=== PATIENT | female | born 1965 | race Caucasian/White ===

== ENCOUNTER 2016-10-18 08:02 | Emergency (ER) | payer OTHER ==
--- NOTE | 2016-10-18 10:14 | UC ---
Throat Pain/Nasal Kunal HPI - HPI Summary HPI Summary: complaint of being diagnosed with influenza last week- [facility] started taking tamiflu without any relief taking acetaminophen for headache, fever and joint pain with minimal relief- last dose 1:30 this morning complaint of headache started after tamiflu right eye is swollen and feels puffy and itchy- purulent drainage - started 2 days ago denies vision changes, photophobia constant headache, muscle and joint pain, headache for 5 days headache is in entire head and her neck feels stiff on the left side intermittent cough with purulent sputum fever intermittent for the last week poor appetite but drinking fluids denies N/V/D - History of Current Complaint Chief Complaint: UCGeneralIllness Stated Complaint: FLU SYMPTOMS Time Seen by Provider: 10/18/16 10:07 Hx Obtained From: Patient - Allergies/Home Medications Allergies/Adverse Reactions: Allergies Allergy/AdvReac Type Severity Reaction Status Date / Time No Known Allergies Allergy Verified 10/18/16 08:41 Home Medications: Home Medications Acetaminophen [Acetaminophen Extra Stren] 2 tab PO PRN 10/18/16 [History] Oseltamivir CAP* [Tamiflu CAP*] 1 cap PO BID 10/18/16 [History Confirmed ] PMH/Surg Hx/FS Hx/Imm Hx Previously Healthy: No - influenza - Surgical History Surgical History: Yes Surgery Procedure, Year, and Place: TUBAL LIGATION, 1979, [facility] - Family History Known Family History: Negative: Cardiac Disease, Diabetes - Social History Occupation: Employed Full-time Lives: With Family Alcohol Use: Occasionally Alcohol Amount: RARE GLASS OF WINE Substance Use Type: None Smoking Status (MU): Never Smoked Tobacco Have You Smoked in the Last Year: No Review of Systems Constitutional: Fever Skin: Negative Eyes: Drainage, Eye Redness ENT: Nasal Discharge Respiratory: Cough Cardiovascular: Negative Gastrointestinal: Negative Genitourinary: Negative Motor: Negative Neurovascular: Negative Musculoskeletal: Negative Neurological: Headache Psychological: Negative All Other Systems Reviewed And Are Negative: Yes Physical Exam Triage Information Reviewed: Yes Appearance: No Pain Distress, Well-Nourished, Ill-Appearing Vital Signs: Initial Vital Signs Temp 99.0 F 10/18/16 08:42 Pulse 85 10/18/16 08:42 Resp 18 10/18/16 08:42 BP 154/81 10/18/16 08:42 Pulse Ox 100 10/18/16 08:42 Vital Signs Reviewed: Yes Eyes: Positive: Conjunctiva Inflamed - right, Discharge - right ENT: Positive: Pharyngeal erythema, Nasal congestion, Nasal drainage, TMs normal Neck: Positive: No Lymphadenopathy, Other: - entire trapezius tenderness. Negative: Nuchal Rigidity Respiratory: Positive: Lungs clear, Normal breath sounds, No respiratory distress, No accessory muscle use Cardiovascular: Positive: RRR, No Murmur, Pulses Normal Abdomen Description: Positive: Nontender, Soft Bowel Sounds: Positive: Present Musculoskeletal: Positive: No Edema Neurological: Positive: Alert, Other: - CNll-Xll normal , negative Romberg, no focal deficits neagtive brudzinki and Kernig signs Psychological Exam: Normal Skin Exam: Normal Re-Evaluation - Re-Evaluation First Eval Change: Improved - less neck pain, headache almost resolved Throat Pain/Nasal Course/Dx - Course Course Of Treatment: exam completed, VSS. no signs of nuccal rigidity, trapezius tenderness , no doffociulty with passive movement of neck- neck pain and headache resolved with toradol. x-ray shows no acute disease process. will treat secondary conjunctivitis- discusses symptom manangement - will followup with PCP - Differential Dx/Diagnosis Provider Diagnoses: influenza, Discharge - Discharge Plan Condition: Stable Disposition: HOME Prescriptions: Benzonatate CAP* [Tessalon 100 MG CAP*] 100 mg PO TID #30 cap Tobramycin 0.3% OPHTH.PATRICIA* 1 drop LEFT EYE Q4H #1 btl Patient Education Materials: Influenza (ED), Conjunctivitis (ED) Referrals: Monica Loco [Primary Care Provider] - Additional Instructions: Please start antibiotic eye drops as directed Increase fluids and rest Take acetaminophen every 4 hours for fever or pain Please review your discharge instructions. If your symptoms do not improve please call your primary care provider or return to urgent care.
[2016-10-18] MEDS ORDERED: Ketorolac INJ* 60 MG/2 ML VIAL IM ONE (10:24)
[2016-10-18 10:51] VITALS: BP 129/84
--- NOTE | 2016-10-18 11:15 | RAD ---
Indication: Fever, influenza. 2 views of the chest including dual energy PA views demonstrate no mediastinal shift. Heart is normal size and configuration. Lung nelson are clear. IMPRESSION: No active cardiopulmonary disease is identified.
== END 2016-10-18 11:26 | disposition home or self-care (01) ==
LOC: UCEAST 08:02
DX: J11.1 Influenza due to unidentified influenza virus with other respiratory manifestations (principal)
CPT/HCPCS: 71020; 96372; 99212; G0463; J1885

== ENCOUNTER 2019-04-17 10:20 | Emergency (ER) | payer OTHER ==
--- OUTSIDE RECORDS SUMMARY | 2019-04-17 10:42 | XMS REPORT | Continuity of Care Document ---
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 Problems Active Problems Provider Date Radial styloid tenosynovitis Justin Farias MD Onset: 02/18/2019 Bilateral carpal tunnel syndrome Justin Farias MD Onset: 02/18/2019 Social History Type Date Description Comments Sex Unknown ETOH Use Denies alcohol use Tobacco Use Start: Unknown Patient has never smoked Smoking Status Reviewed: 04/15/19 Patient has never smoked Exercise Type/Frequency Exercises sporadically Allergies, Adverse Reactions, Alerts Description No Known Drug Allergies Medications Active Medications SIG Qnty Indications Ordering Provider Date Multi-Vitamins Unknown Naproxen 250mg prn Unknown Tablets Medications Administered in Office Medication SIG Qnty Indications Ordering Provider Date Depomedrol 40MG Viktoria Chino M.D. 2018 Injection Immunizations Description No Information Available Vital Signs Date Vital Result Comment 04/15/2019 9:07am Height 64 inches 5'4" Weight 197.25 lb Heart Rate 72 /min BP Systolic 130 mmHg BP Diastolic 82 mmHg Respiratory Rate 16 /min Body Temperature 97.0 F Pain Level 5 BMI (Body Mass Index) 33.9 kg/m2 02/18/2019 8:12am Height 63 inches 5'3" Weight 185.00 lb Heart Rate 64 /min BP Systolic 144 mmHg BP Diastolic 86 mmHg Respiratory Rate 18 /min Body Temperature 97.5 F Pain Level 8 BMI (Body Mass Index) 32.8 kg/m2 Results Description No Information Available Procedures Description No Information Available Medical Devices Description No Information Available Encounters Type Date Location Provider Dx Diagnosis Office Visit 02/18/2019 [facility] Justin Farias G56.03 Carpal tunnel 8:00a at [facility] [place] syndrome, bilateral upper limbs M65.4 Radial styloid tenosynovitis [de Quervain] G56.23 Lesion of ulnar nerve, bilateral upper limbs Office Visit 01/15/2019 10:30a [facility] Justin G56.03 Carpal tunnel at [facility] Farias MD syndrome, bilateral upper limbs M65.4 Radial styloid tenosynovitis [de Quervain] G56.01 Carpal tunnel syndrome, right upper limb Assessments Date Code Description Provider 04/15/2019 G56.03 Carpal tunnel syndrome, bilateral upper limbs Justin Farias MD 04/15/2019 M65.4 Radial styloid tenosynovitis [de Quervain] Justin Farias MD 02/18/2019 G56.03 Carpal tunnel syndrome, bilateral upper limbs Justin Farias MD 02/18/2019 M65.4 Radial styloid tenosynovitis [de Quervain] Justin Farias MD 02/18/2019 G56.23 Lesion of ulnar nerve, bilateral upper limbs Justin Farias MD 01/15/2019 G56.03 Carpal tunnel syndrome, bilateral upper limbs Justin Farias MD 01/15/2019 M65.4 Radial styloid tenosynovitis [de Quervain] Justin Farias MD 01/15/2019 G56.01 Carpal tunnel syndrome, right upper limb Justin Farias MD Plan of Treatment 04/15/2019 - Justin Farias MDG56.03 Carpal tunnel syndrome, bilateral upper limbsFollow up:Follow up: 7-10 days before [id number] Radial styloid tenosynovitis [de Quervain] Functional Status Description No Information Available Mental Status Description No Information Available Referrals Description No Information Available
--- OUTSIDE RECORDS SUMMARY | 2019-04-17 10:43 | XMS REPORT | Continuity of Care Document ---
:1965 External Reference #:[id number] Author Name Janeth Sepulveda MD (transmitted by agent of provider Janeth Monaco) Address [address] [place] [address] Problems Active Problems Provider Date Excessive and frequent menstruation Marcia Becker NP Onset: 02/17/2015 Social History Type Date Description Comments Sex Unknown Tobacco Use Start: Unknown Never Smoked Cigarettes ETOH Use Occasionally consumes alcohol Recreational Drug Use Denies Drug Use Tobacco Use Start: Unknown Patient has never smoked Exercise Type/Frequency Does not exercise Seat Belt/Car Seat Always uses seat belt Allergies, Adverse Reactions, Alerts Description No Known Drug Allergies Medications Description No Active Medications Immunizations Description No Information Available Vital Signs Date Vital Result Comment 03/24/2019 8:13am BP Systolic 136 mmHg BP Diastolic 78 mmHg Height 62 inches 5'2" Weight 197.00 lb BMI (Body Mass Index) 36.0 kg/m2 Last Menstrual Period [id number] 0 06/01/2016 4:04pm BP Systolic 130 mmHg BP Diastolic 72 mmHg Height 62 inches 5'2" Weight 190.00 lb BMI (Body Mass Index) 34.7 kg/m2 Last Menstrual Period [id number] 0 Results Description No Information Available Procedures Date Code Description Status 05/07/2018 86602554 Mammogram Completed 05/07/2017 [id number] Colonoscopy Completed Medical Devices Description No Information Available Encounters Description No Information Available Assessments Description No Information Available Plan of Treatment No Information Available Functional Status Description No Information Available Mental Status Description No Information Available Referrals Description No Information Available
--- OUTSIDE RECORDS SUMMARY | 2019-04-17 10:43 | XMS REPORT | Continuity of Care Document ---
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 Problems Active Problems Provider Date Radial styloid tenosynovitis Justin Farias MD Onset: 02/18/2019 Bilateral carpal tunnel syndrome Justin Farias MD Onset: 02/18/2019 Social History Type Date Description Comments Sex Unknown ETOH Use Denies alcohol use Tobacco Use Start: Unknown Patient has never smoked Smoking Status Reviewed: 02/18/19 Patient has never smoked Exercise Type/Frequency Exercises sporadically Allergies, Adverse Reactions, Alerts Description No Known Drug Allergies Medications Active Medications SIG Qnty Indications Ordering Provider Date Multi-Vitamins Unknown Medications Administered in Office Medication SIG Qnty Indications Ordering Provider Date Depomedrol 40MG Viktoria Chino M.D. 2018 Injection Immunizations Description No Information Available Vital Signs Date Vital Result Comment 02/18/2019 8:12am Height 63 inches 5'3" Weight 185.00 lb Heart Rate 64 /min BP Systolic 144 mmHg BP Diastolic 86 mmHg Respiratory Rate 18 /min Body Temperature 97.5 F Pain Level 8 BMI (Body Mass Index) 32.8 kg/m2 01/15/2019 11:05am Height 63 inches 5'3" Weight 191.50 lb Heart Rate 72 /min BP Systolic 114 mmHg BP Diastolic 86 mmHg Respiratory Rate 14 /min Pain Level 8 BMI (Body Mass Index) 33.9 kg/m2 Results Description No Information Available Procedures Date Code Description Status 2018 73929 Inject Tendon Sheath Or Ligament Aponeurosis Eg Plantar Completed Fascia Medical Devices Description No Information Available Encounters Type Date Location Provider Dx Diagnosis Office Visit 01/15/2019 [facility] Justin Farias G56.03 Carpal tunnel 10:30a at [place] syndrome, bilateral upper limbs M65.4 Radial styloid tenosynovitis [de Quervain] G56.01 Carpal tunnel syndrome, right upper limb Office Visit 2018 1:45p [facility] Viktoria G56.03 Carpal tunnel at [facility] Chino M.D. syndrome, bilateral upper limbs G56.23 Lesion of ulnar nerve, bilateral upper limbs M65.4 Radial styloid tenosynovitis [de Quervain] G56.03 Carpal tunnel syndrome, bilateral upper limbs Assessments Date Code Description Provider 02/18/2019 G56.03 Carpal tunnel syndrome, bilateral upper [...] syndrome, right upper limb Justin Farias MD 2018 G56.03 Carpal tunnel syndrome, bilateral upper limbs Viktoria Chino M.D. 2018 G56.23 Lesion of ulnar nerve, bilateral upper limbs Viktoria Chino M.D. 2018 M65.4 Radial styloid tenosynovitis [de Quervain] Viktoria Chino M.D. 2018 G56.03 Carpal tunnel syndrome, bilateral upper limbs Viktoria Chino M.D. Plan of Treatment 02/18/2019 - Justin Farias MDG56.03 Carpal tunnel syndrome, bilateral upper wpmtkY88.4 Radial styloid tenosynovitis [de Quervain]Follow up:Follow up: 7- 10 days before qsaebpuI41.23 Lesion of ulnar nerve, bilateral upper limbs Functional Status Description No Information Available Mental Status Description No Information Available Referrals Description No Information Available
--- OUTSIDE RECORDS SUMMARY | 2019-04-17 10:43 | XMS REPORT | Summary of Care ---
:1965 Author Organization [facility] Address [address] [place] [address] Care Team Providers Name Role Phone Reinaldo Lopes Primary Care Provider Reason for Referral MRI/CAT/PET Scan (Routine) Status Reason Specialty Diagnoses / Referred By Referred To Procedures Contact Contact Pending Review Diagnoses Abnormal mammogram of both breasts [place], Procedures US BREAST COMPLETE BILAT LOC [facility] [address] [place] [address] Diagnostic Testing (Routine) Status Reason Specialty Diagnoses / Referred By Referred To Procedures Contact Contact Pending Review Diagnoses Heart murmur [place] Procedures ECHOCARDIOGRAM TTE LOC [facility] [address] [place] [address] Reason for Visit Reason Comments Follow Up pt presents in office for f/u to abnormal mammo Encounter Details Date Type Department Care Team Description 02/24/2019 Office Visit Linnette Sharma, Abnormal mammogram of both breasts (Primary Dx); 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 0 Active Tab trazodone (DESYREL) Take 0.5 Tabs by 90 Tab 0 07/26/2018 Active 100 MG Oral Tab mouth EVERY BEDTIME NEEDED (for insomnia secondary to pain). naproxen (NAPROSYN) Take 1 Tab by mouth 60 Tab 0 07/26/2018 Active 500 MG Oral Tab TWICE DAILY. lidocaine transdermal 1 Patch by Topical 30 Patch 0 12/03/2018 Active patch (LIDODERM) 5 % route DAILY. 12 Apply externally hours on and 12 Patch hours off documented as of this encounter (statuses as of 02/24/2019) Active Problems Problem Noted Date PPD POSITIVE 07/26/2009 documented as of this encounter (statuses as of 02/24/2019) Social History Tobacco Use Types Packs/Day Years Used Date Never Smoker Smokeless Tobacco: Never Used Alcohol Use Drinks/Week oz/Week Comments Yes occas Sex Assigned at Date Recorded Not on file Job Start Date Occupation Industry Not on file Not on file Not on file Travel History Travel Start Travel End No recent travel history available. documented as of this encounter Last Filed Vital Signs Vital Sign Reading Time Taken Comments Blood Pressure 124/80 02/24/2019 9:03 AM EDT Pulse 84 02/24/2019 9:03 AM EDT Temperature - - Respiratory Rate - - Oxygen Saturation 98% 02/24/2019 9:03 AM EDT Inhaled Oxygen Concentration - - Weight 89.5 kg (197 lb 6.4 oz) 02/24/2019 9:03 AM EDT Height 157.5 cm (5' 2") 02/24/2019 9:03 AM EDT Body Mass Index 36.1 02/24/2019 9:03 AM EDT documented in this encounter Patient Instructions Patient InstructionsLinnette Wood NP - 02/24/2019 9:00 AM EDTSchedule diagnostic follow up mammogram and ultrasound of both breasts. Schedule echocardiogram. Follow up with Dr. Lopes - after echocardiogram results. documented in this encounter Progress Notes Linnette Wood NP - 02/24/2019 9:00 AM EDT PATIENT: Evette PUENTES : 1965 DATE OF SERVICE: 02/24/2019 CHIEF COMPLAINT: Chief Complaint Patient presents with Follow Up pt presents in office for f/u to abnormal mammo Subjective HISTORY OF PRESENT ILLNESS: Evette PUENTES is a 53-y.o. female. HPI Here for follow up of abnormal mammogram - through [facility] at [facility]. No problems with breast - no skin changes, dimpling, nipple discharge, pain ( unless squeezing her breasts, has always been this way). Normally gets care from Dr. Lopes at the [facility]. Mammogram 02/11/2019: Upper outer quad of right breast 4x3mm well-circumscribed mass identified with questionable lucent center on tomographic slice. There is a similar upper outer quadrant left [id number] mm mass identified with also a questionable lucent center on the tomographic slice. These are unchanged in size since the previous examination. However ultrasound evaluation is recommended. Past Medical History: Diagnosis Date Colon adenoma 2017 5 year CTS (carpal tunnel syndrome) bilateral mild 2017 Lyme disease PPD POSITIVE 07/26/2009 negative chest X-ray 07/2007 Sinus disease Family History Problem Relation Age of Onset Hypertension Mother Cancer Father lung/liver - alcohol/tobacco Current Outpatient Medications Medication Sig lidocaine transdermal patch (LIDODERM) 5 % Apply externally Patch 1 Patch by Topical route DAILY. 12 hours on and 12 hours off Multi-Vitamin Oral Tab Take by mouth. naproxen (NAPROSYN) 500 MG Oral Tab Take 1 Tab by mouth TWICE DAILY. trazodone (DESYREL) 100 MG Oral Tab Take 0.5 Tabs by mouth EVERY BEDTIME NEEDED (for insomnia secondary to pain). No current facility-administered medications for this visit. No Known Allergies Social History Socioeconomic History Marital status: Unknown Spouse name: Not on file Number of children: Not on file Years of education: Not on file Highest education level: Not on file Occupational History Not on file Social Needs Financial resource strain: Not on file Food insecurity: Worry: Not on file Inability: Not on file Transportation needs: Medical: Not on file Non-medical: Not on file Tobacco Use Smoking status: Never Smoker Smokeless tobacco: Never Used Substance and Sexual Activity Alcohol use: Yes Comment: occas Drug use: Never Sexual activity: Not on file Lifestyle Physical activity: Days per week: Not on file Minutes per session: Not on file Stress: Not on file Relationships Social connections: Talks on phone: Not on file Gets together: Not on file Attends quaker service: Not on file Active member of club or organization: Not on file Attends meetings of clubs or organizations: Not on file Relationship status: Not on file Intimate partner violence: Fear of current or ex partner: Not on file Emotionally abused: Not on file Physically abused: Not on file Forced sexual activity: Not on file Other Topics Concern Not on file Social History Narrative Raymundo Garcia REVIEW OF SYSTEMS: Review of Systems Constitutional: Negative for chills, fever and malaise/fatigue. Respiratory: Negative for cough and shortness of breath. Cardiovascular: Negative for chest pain and palpitations. PND: sob when laying on her back, has to sleep on side. Gastrointestinal: Negative for abdominal pain, nausea and vomiting. Musculoskeletal: Negative for back pain, joint pain and myalgias. Neurological: Negative for dizziness, tingling and sensory change. Objective PHYSICAL EXAM: VITALS: BP 124/80 (BP Location: Left arm, Patient Position: Sitting) | Pulse 84 | Ht 5' 2" (1.575m) | Wt 197 lb 6.4 oz (89.5 kg) | LMP 06/18/2009 | SpO2 98% | BMI 36.10 kg/m Body mass index is 36.1 kg/m. Physical Exam Vitals signs and nursing note reviewed. Constitutional: General: She is not in acute distress. Appearance: Normal appearance. She is well-developed. Cardiovascular: Rate and Rhythm: Normal rate and regular rhythm. Heart sounds: Murmur present. Systolic murmur present with a grade of 1/6. No friction rub. No gallop. Pulmonary: Effort: Pulmonary effort is normal. No respiratory distress. Breath sounds: Normal breath sounds. Lymphadenopathy: Cervical: No cervical adenopathy. Upper Body: Right upper body: No supraclavicular adenopathy. Left upper body: No supraclavicular adenopathy. Neurological: Mental Status: She is alert. Psychiatric: Mood and Affect: Mood and affect normal. Speech: Speech normal. Behavior: Behavior normal. Behavior is cooperative. ASSESSMENT / IMPRESSION: ICD-9-CM ICD-10-CM 1. Abnormal mammogram of both breasts 793.80 R92.8 MAMMO DIAG TOMOSYNTHESIS BILAT US BREAST COMPLETE BILAT 2. Heart murmur 785.2 R01.1 ECHOCARDIOGRAM TTE Plan 1. Heart murmur Found incidentally on PE, no symptoms, last EKG in November 2018 NSR. - ECHOCARDIOGRAM TTE; Future 2. Abnormal mammogram of both breasts - MAMMO DIAG TOMOSYNTHESIS BILAT; Future - US BREAST COMPLETE BILAT; Future Follow up with Dr Lopes (depending on results). Author: Linnette Wood NP 02/24/2019 09:31 documented in this encounter Plan of Treatment Date Type Specialty Care Team Description 03/03/2019 Ancillary Procedure Radiology Name Type Priority Associated Diagnoses Order Schedule ECHOCARDIOGRAM TTE CV Lab Routine Heart murmur Expected: 02/24/2019, Expires: 03/30/2020 MAMMO DIAG TOMOSYNTHESIS Imaging Routine Abnormal mammogram of Expected: BILAT both breasts 02/24/2019, Expires: 05/24/2020 US BREAST COMPLETE BILAT Imaging Routine Abnormal mammogram of Expected: both breasts 02/24/2019, Expires: 05/27/2020 Health Maintenance Due Date Last Done Comments HIV SCREENING 09/01/1978 DIABETES SCREENING 09/01/1981 HEPATITIS C SCREENING 2003 PAP SMEAR 07/26/2012 07/26/2009, 07/26/2009 ZOSTER IMMUNIZATION SERIES 09/01/2013 (1 of 2) LIPID DISORDER SCREENING 07/26/2014 07/26/2009 MAMMOGRAM (SCREENING) 06/20/2018 06/20/2017, 07/20/2011, 04/20/2010, Additional history exists INFLUENZA VACCINE (#1) 2019 DEPRESSION SCREENING 12/04/2019 12/03/2018 COLONOSCOPY SCREENING 03/06/2023 03/06/2018 HPV IMMUNIZATION SERIES Aged Out No longer eligible based on patient's age to complete this topic MENINGOCOCCAL VACCINE IMM Aged Out No longer eligible based on patient's age to complete this topic PNEUMOCOCCAL 0-64 YRS Aged Out No longer eligible based on patient's age to complete this topic documented as of this encounter Results Not on filedocumented in this encounter Visit Diagnoses Diagnosis Abnormal mammogram of both breasts - Primary Heart murmur Undiagnosed cardiac murmurs documented in this encounter Insurance Payer Benefit Plan / Subscriber ID Effective Dates Phone Address Type Group [employer] C[employer] MVP xxxxxxxxxxx 2007-Present C[employer]a Guarantor Name Account Type Relation to Date of Phone Billing Patient Address Evette PUENTES Personal/Family 1965 [address] (Home) [facility] [phone] [place], [place] (Work) [id number] documented as of this encounter
[2019-04-17] MEDS ORDERED: Cyclobenzaprine TAB* 10 MG PO ONE (11:10)
[2019-04-17] MEDS ORDERED: Ibuprofen TAB* 800 MG PO ONE (11:10)
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
[2019-04-17 12:38] VITALS: BP 165/95
== END 2019-04-17 12:37 | disposition home or self-care (01) ==
LOC: ED 10:20
DX: S43.402A Unspecified sprain of left shoulder joint, initial encounter (principal); V47.0XXA Car driver injured in collision with fixed or stationary object in nontraffic accident, initial encounter; Y92.481 Parking lot as the place of occurrence of the external cause; I10 Essential (primary) hypertension; Z98.51 Tubal ligation status
CPT/HCPCS: 71046; 99282; A9270-GY

== ENCOUNTER 2019-05-27 15:37 | Emergency (ER) | payer OTHER ==
--- OUTSIDE RECORDS SUMMARY | 2019-05-27 15:43 | XMS REPORT | Summary of Care ---
:1965 Author Organization [facility] Address [address] [facility] [place] [address] Care Team Providers Name Role Phone Reinaldo Lopes Primary Care Provider Reason for Visit Reason Comments Heel Pain left Encounter Details Date Type Department Care Team Description 05/21/2019 Office Visit [facility] Reinaldo Lopes MD Plantar fasciitis Practice [address] [facility] (Primary Dx) [address] [place] [address] [place] [address] [phone] Allergies No Known Allergiesdocumented as of this encounter (statuses as of 05/21/2019) Medications Medication Sig Dispensed Refills Start Date [...] as of this encounter (statuses as of 05/21/2019) Active Problems Problem Noted Date PPD POSITIVE 07/26/2009 documented as of this encounter (statuses as of 05/21/2019) Social History Tobacco Use Types Packs/Day Years [...] Sign Reading Time Taken Comments Blood Pressure 148/87 05/21/2019 9:30 AM EST Pulse 75 05/21/2019 9:30 AM EST Temperature 36.7 05/21/2019 9:30 AM EST C (98 F) Respiratory Rate - - Oxygen Saturation 98% 05/21/2019 9:30 AM EST Inhaled Oxygen Concentration - - Weight 86.2 kg (190 lb) 05/21/2019 9:30 AM EST Height 160 cm (5' 3") 05/21/2019 9:30 AM EST Body Mass Index 33.66 05/21/2019 9:30 AM EST documented in this encounter Progress Notes Reinaldo Lopes MD - 05/21/2019 9:00 AM EST PATIENT: Evette PUENTES : 1965 DATE OF SERVICE: 05/21/2019 CHIEF COMPLAINT: Chief Complaint Patient presents with Heel Pain left Subjective HISTORY OF PRESENT ILLNESS: Evette PUENTES is a 53-y.o. female. Left heel pain radiating up the padilla x 1 week. Has had for few days before then would pass. This not going away. Pain worse in AM can barely walk. Gets better after 10 min but is on feet all day atwork and very painful. tries to massage padilla and is painful She does recall twisting ankle before it started Past Medical History: Diagnosis Date Colon adenoma 2017 5 year CTS (carpal tunnel syndrome) bilateral mild 2018 Lyme disease PPD POSITIVE 07/26/2009 negative chest [...] Financial resource strain: Not on file Food insecurity Worry: Not on file Inability: Not on file Transportation needs Medical: Not on file Non-medical: Not on file Tobacco Use Smoking status: Never Smoker Smokeless tobacco: Never Used Substance and Sexual Activity Alcohol use: Yes Comment: occas Drug use: Never Sexual activity: Not on file Lifestyle Physical activity Days per week: Not on file Minutes per session: Not on file Stress: Not on file Relationships Social connections Talks on phone: Not on file Gets together: Not on file Attends taoist service: Not on file Active member of club or organization: Not on file Attends meetings of clubs or organizations: Not on file Relationship status: Not on file Intimate partner violence Fear of current or ex partner: Not on file Emotionally abused: Not on file Physically abused: Not on file Forced sexual activity: Not on file Other Topics Concern Not on file Social History Narrative Raymundo Garcia REVIEW OF SYSTEMS: ROS Objective PHYSICAL EXAM: VITALS: BP (!) 148/87 | Pulse 75 | Temp 98 F (36.7 C) | Ht 5' 3" ( 1.6 m) | Wt 190 lb (86.2 kg) | LMP 06/18/2009 | SpO2 98% | BMI 33.66 kg/m Body mass index is 33.66 kg/m. Physical Exam Vitals signs reviewed. Constitutional: Appearance: She is obese. Cardiovascular: Rate and Rhythm: Normal rate and regular rhythm. Pulmonary: Effort: Pulmonary effort is normal. No respiratory distress. Musculoskeletal: General: Tenderness: minimal at heel without deformity rom is fine Right lower leg: No edema. Left lower leg: No edema. ASSESSMENT / IMPRESSION: ICD-9-CM ICD-10-CM 1. Plantar fasciitis 728.71 M72.2 Explained diagnosis and wrote out for her steps including exercises Inserts Ice and tennis ball Night splint Therapy Podiatry with orthotics/shots Can also go away on own but can take months Plan Author: Reinaldo Lopes MD 05/21/2019 11:53 documented in this encounter Plan of Treatment Health Maintenance Due Date Last Done Comments DTaP/Tdap/Td Vaccines (1 - 09/01/1974 Tdap) HIV SCREENING 09/01/1978 DIABETES SCREENING 09/01/1981 HEPATITIS C SCREENING 2003 PAP SMEAR 07/26/2012 07/26/2009, 07/26/2009 ZOSTER IMMUNIZATION SERIES 09/01/2013 (1 of 2) LIPID DISORDER SCREENING 07/26/2014 07/26/2009 INFLUENZA VACCINE (#1) 2019 DEPRESSION SCREENING 12/04/2019 12/03/2018 MAMMOGRAM (SCREENING) 02/12/2020 02/11/2019, 02/11/2019, 06/20/2017, Additional history exists Colonoscopy 03/06/2023 03/06/2018 HEPATITIS A IMMUNIZATION Aged Out No longer eligible SERIES based on patient's age to complete this topic HPV IMMUNIZATION SERIES Aged Out No longer eligible based on patient's age to complete this topic MENINGOCOCCAL VACCINE IMM Aged Out No longer eligible based on patient's age to complete this topic PNEUMOCOCCAL 0-64 YRS Aged Out No longer eligible based on patient's age to complete this topic documented as of this encounter Results Not on filedocumented in this encounter Visit Diagnoses Diagnosis Plantar fasciitis Plantar fascial fibromatosis documented in this encounter
[2019-05-27 16:05] VITALS: BP 158/94
--- NOTE | 2019-05-27 16:49 | UC ---
Lower Extremity/Ankle HPI - HPI Summary HPI Summary: 53-year-old female presents with complaints of persistent pain of her left foot and ankle. States approximately 3 weeks ago she was walking on some wet grass, slipped and caused a twisting injury to the foot and ankle. States initially had very little pain and was able to walk and bear weight without any difficulties however pain gradually worsened. She was evaluated by her primary care provider for the pain 1 week ago and was told it was likely a plantar fasciitis and recommended conservative treatment. Patient reports pain has progressively worsened especially over the past 2 days and that it is now started to radiate up the lower leg. Describes pain as "sharp and burning". Worsens with extended standing and walking. Denies alleviating factors although she has not taken any [id number] analgesics for the pain. Denies any bruising, swelling, numbness, or tingling. - History of Current Complaint Chief Complaint: UCLowerExtremity Stated Complaint: FOOT PAIN Time Seen by Provider: 05/27/19 16:36 Hx Obtained From: Patient Pain Intensity: 8 - Allergies/Home Medications Allergies/Adverse Reactions: Allergies Allergy/AdvReac Type Severity Reaction Status Date / Time No Known Allergies Allergy Verified 05/27/19 16:05 PMH/Surg Hx/FS Hx/Imm Hx Previously Healthy: Yes - Denies significant PMH - Surgical History Surgical History: Yes Surgery Procedure, Year, and Place: TUBAL LIGATION, 1979, [facility]. right wrist surgery. "female surgery". nasal surgery - Family History Known Family History: Positive: Non-Contributory - Social History Occupation: Employed Full-time Lives: With Family Alcohol Use: Occasionally Alcohol Amount: RARE GLASS OF WINE Substance Use Type: None Smoking Status (MU): Never Smoked Tobacco Have You Smoked in the Last Year: No Review of Systems All Other Systems Reviewed And Are Negative: Yes Constitutional: Negative: Fever, Chills Skin: Negative: Rash, Bruising Respiratory: Positive: Negative Cardiovascular: Positive: Negative Gastrointestinal: Positive: Negative Genitourinary: Positive: Negative Motor: Negative: Weakness Neurovascular: Negative: Decreased Sensation Musculoskeletal: Positive: Other: - See HPI Neurological: Positive: Negative Is Patient Immunocompromised?: No Physical Exam - Summary Physical Exam Summary: GENERAL APPEARANCE: Well developed, well nourished, alert and cooperative, and appears to be in no acute distress. CARDIAC: Normal S1 and S2. No S3, S4 or murmurs. Rhythm is regular. There is no peripheral edema, cyanosis or pallor. Extremities are warm and well perfused. Capillary refill is less than 2 seconds. Peripheral pulses intact. LUNGS: Clear to auscultation without rales, rhonchi, wheezing or diminished breath sounds. ABDOMEN: Positive bowel sounds. Soft, nondistended, nontender. No guarding or rebound. No masses or hepatosplenomegally. MUSKULOSKELETAL: ROM intact to all extremities. No joint erythema or tenderness. Normal muscular development. Normal gait. EXTREMITIES: Tenderness to the proximal dorsal left foot and lateral left ankle without gross deformity, ecchymosis, erythema, or edema. Full ROM to the ankle. Calf supple and nontender. Circulation and sensation intact. SKIN: Skin normal color, texture and turgor with no lesions or eruptions. Triage Information Reviewed: Yes Vital Signs: Initial Vital Signs Temp 98.4 F 05/27/19 16:00 Pulse 66 05/27/19 16:00 Resp 18 05/27/19 16:00 BP 158/94 05/27/19 16:00 Pulse Ox 100 05/27/19 16:00 Vital Signs Reviewed: Yes Diagnostics - Radiology No standard instances Radiology Interpretation Completed By: Radiologist Summary of Radiographic Findings: Order Information: FOOT LEFT 3+ VWS & ANKLE LEFT 3+VWS. Indication: 3 weeks LEFT ankle and foot pain following injury. Medial and dorsal pain. Twisting injury. Comparison: October 22, 2006. Technique : AP, lateral, and oblique views LEFT foot & AP, mortise, and lateral views LEFT ankle. REPORT AND IMPRESSION: #. No cortical disruption or suspicious trabecular irregularity to suggest fracture. #. 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 #. Small plantar fascia origin bone spur. #. Mild nonfocal soft tissue swelling. Lower Extremity Course/Dx - Course Course Of Treatment: 53-year-old female presents with complaints of persistent pain of her left foot and ankle. States approximately 3 weeks ago she was walking on some wet grass, slipped and caused a twisting injury to the foot and ankle. States initially had very little pain and was able to walk and bear weight without any difficulties however pain gradually worsened. She was evaluated by her primary care provider for the pain 1 week ago and was told it was likely a plantar fasciitis and recommended conservative treatment. Patient reports pain has progressively worsened especially over the past 2 days and that it is now started to radiate up the lower leg. Describes pain as "sharp and burning". Worsens with extended standing and walking. Denies alleviating factors although she has not taken any [id number] analgesics for the pain. Denies any bruising, swelling, numbness, or tingling. Afebrile. Hypertensive otherwise vital signs stable. Patient had tenderness to the proximal dorsal left foot and lateral left ankle without gross deformity, ecchymosis, erythema, or edema. Full ROM to the ankle. Calf supple and nontender. Circulation and sensation intact. Patient was given naproxen 500 mg 1 tablet PO for the pain. X-rays showed no cortical disruption or suspicious trabecular irregularity to suggest fracture altough there was mild nonfocal soft tissue swelling. There was evidence of moderate osteoarthritis at the first metatarsal phalangeal joint with interval worsening and a small plantar fascia origin bone spur which are likely incidental findings. Results are reviewed with the patient. Recommending conservative treatment for left lower leg pain including continued use of naproxen 500 mg every 12 hours as needed for pain as well as RICE. She was placed in a cam boot by the RN. She is to follow-up with her primary care provider or orthopedic surgery within 5-7 days for further evaluation and treatment if symptoms are not improving. Anticipatory guidance and warning symptoms were reviewed with the patient. Verbalizes understanding and agrees with plan of care. - Differential Dx/Diagnosis Differential Diagnosis/HQI/PQRI: Contusion, Dislocation, Fracture (Closed), Sprain, Strain, Tendonitis, Other - Or fasciitis Provider Diagnosis: Pain in left lower leg Discharge ED - Sign-Out/Discharge Documenting (check all that apply): Patient Departure All imaging exams completed and their final reports reviewed: Yes - Discharge Plan Condition: Stable Disposition: HOME Prescriptions: Naproxen [Naproxen 500 mg tab] 500 mg PO Q12HR PRN #30 tablet PRN Reason: Pain - Moderate Patient Education Materials: Ankle Sprain (ED), Foot Sprain (ED) Referrals: Reinaldo Lopes MD [Primary Care Provider] - aD Amaro MD [Medical Doctor] - Additional Instructions: The x-ray performed in the clinic today showed no evidence of a fracture. Rest the foot as much as possible. You may continue to walk and bear weight as tolerated. Use the walking boot that was provided to you in the clinic until pain free. You may remove to shower and sleep. Apply ice to the affected area for 15-20 minutes at least 4 times a day to help with the pain and swelling. Elevate the foot to help reduce swelling. Take naproxen 500 mg 1 tab every 12 hours with food as needed for pain. You were given a dose in the clinic at around 5:30 pm. Follow up with your primary care provider or orthopedic surgery in 5-7 days if symptoms do not improve. Seek immediate medical attention if you have severe pain not managed with pain medication, you are unable to walk or bear any weight, develop numbness or tingling in the foot or toes, have swelling of the leg, develop chest pain or shortness of breath, or have any worsening of symptoms. - Billing Disposition and Condition Condition: STABLE Disposition: Home - Attestation Statements Provider Attestation: This patient was not seen by me. I was available for consult. Chart reviewed. MOSES
[2019-05-27] MEDS ORDERED: Naproxen TAB* 250 MG PO ONE (17:09)
== END 2019-05-27 18:25 | disposition home or self-care (01) ==
LOC: UCEAST 15:37
DX: M79.662 Pain in left lower leg (principal); M19.072 Primary osteoarthritis, left ankle and foot; M77.52 Other enthesopathy of left foot and ankle; M25.472 Effusion, left ankle
CPT/HCPCS: 99212; A9270-GY; G0463